=== PATIENT | female | born 1970 | race Caucasian/White ===

== ENCOUNTER 2025-03-16 07:59 | Day surgery (SDC) | payer OTHER ==
[2025-03-16] MEDS ORDERED: D50W 50 ml Abboject IV ONE (08:00)
[2025-03-16] MEDS ORDERED: LIDOCAINE HCL 2% 100 MG/5 ML IJ ONE (08:00)
[2025-03-16] MEDS ORDERED: Depo-Medrol 40 MG/ML IM ONE (08:00)
[2025-03-16] MEDS ORDERED: Zofran 4 MG/2 ML VIAL ONE (08:57)
[2025-03-16] MEDS ORDERED: propofoL IV ONE (10:02)
--- NOTE | 2025-03-16 11:08 | XRAY ---
Indication: Bilateral L4-S1 MBB. Intraoperative fluoroscopy provided for 10 seconds. Single digital spot image submitted for interpretation demonstrates posterior needle tips projecting over expected left and right L4-S1 nerve roots. Correlate with intraoperative findings/report.
--- NOTE | 2025-03-16 11:27 | XRAY ---
10 seconds of fluoroscopy was used in surgery for a bilateral L4-S1 MBB.
[2025-03-16] MEDS ORDERED: Lactated Ringers 1,000 ML IV ONE (12:17)
== END 2025-03-16 10:47 | disposition home or self-care (01) ==
LOC: SDC-PAIN 07:59
PROVIDERS: ATTEND Psychiatry & Neurology Pain Medicine
DX: M47.817 Spondylosis without myelopathy or radiculopathy, lumbosacral region (principal); E11.9 Type 2 diabetes mellitus without complications

== ENCOUNTER 2025-05-17 06:59 | Day surgery (SDC) | payer OTHER ==
[2025-05-17] MEDS ORDERED: D50W 50 ml Abboject IV ONE ×2 (07:00)
[2025-05-17] MEDS ORDERED: methylPREDNISolone acetate IM ONE (07:00)
[2025-05-17] MEDS ORDERED: BUPIVACAINE 0.5% VIAL IJ ONE (07:00)
[2025-05-17] MEDS ORDERED: LIDOCAINE HCL 1% 50 MG/5 ML VL IJ ONE (07:00)
[2025-05-17] MEDS ORDERED: propofoL IV ONE (08:05)
[2025-05-17] MEDS ORDERED: Xylocaine-Mpf 2% 5 Ml Vial ONE (08:11)
[2025-05-17] MEDS ORDERED: Lactated Ringers 1,000 ML IV ONE (08:51)
--- NOTE | 2025-05-17 10:26 | XRAY ---
Indication: Right L4-S1 RFA. Intraoperative fluoroscopy provided for 18 seconds. 4 digital spot image submitted for interpretation demonstrates posterior needle tips projecting over expected right L4-S1 nerve roots. Correlate with intraoperative findings/report.
--- NOTE | 2025-05-17 13:07 | XRAY ---
18 seconds of fluoroscopy were used in surgery for a right L4-S1 RFA.
== END 2025-05-17 09:07 | disposition home or self-care (01) ==
LOC: SDC-PAIN 06:59
PROVIDERS: ATTEND Psychiatry & Neurology Pain Medicine
DX: M47.817 Spondylosis without myelopathy or radiculopathy, lumbosacral region (principal); E11.9 Type 2 diabetes mellitus without complications

== ENCOUNTER 2025-05-31 07:02 | Day surgery (SDC) | payer OTHER ==
[2025-05-31] MEDS ORDERED: methylPREDNISolone acetate IM ONE (07:03)
[2025-05-31] MEDS ORDERED: BUPIVACAINE 0.5% VIAL IJ ONE (07:03)
[2025-05-31] MEDS ORDERED: LIDOCAINE HCL 1% 50 MG/5 ML VL IJ ONE (07:03)
[2025-05-31] MEDS ORDERED: D50W 50 ml Abboject IV ONE (07:39)
[2025-05-31] MEDS ORDERED: propofoL IV ONE (07:58)
[2025-05-31] MEDS ORDERED: Xylocaine-Mpf 2% 5 Ml Vial ONE (08:12)
[2025-05-31] MEDS ORDERED: Lactated Ringers 1,000 ML IV ONE (09:22)
--- NOTE | 2025-05-31 10:29 | XRAY ---
Indication: Left L4-S1 RFA. Intraoperative fluoroscopy provided for 19 seconds. 5 digital spot images submitted for interpretation demonstrates posterior needle tips projecting over expected left L4-S1 nerve roots. Correlate with intraoperative findings/report.
--- NOTE | 2025-05-31 12:46 | XRAY ---
19 seconds of fluoroscopy was used in surgery for a left L4-S1 RFA.
== END 2025-05-31 08:55 | disposition home or self-care (01) ==
LOC: SDC-PAIN 07:02
PROVIDERS: ATTEND Psychiatry & Neurology Pain Medicine
DX: M47.817 Spondylosis without myelopathy or radiculopathy, lumbosacral region (principal); E11.9 Type 2 diabetes mellitus without complications